=== PATIENT | female | born 1985 | race Caucasian/White ===

== ENCOUNTER 2016-06-10 10:15 | Emergency (ER) | payer OTHER ==
--- NOTE | 2016-06-10 10:32 | ER Document Report ---
ED Medical Screen (RME) - General Chief Complaint: Cough Stated Complaint: COUGH Time seen by provider: 10:30 Mode of Arrival: Ambulatory Information source: Patient Notes: 30 female presents to ed for cough off an on for 3 months. this time around she has headache chest pain throat pain with foul breath with yellow green expectorate. TRAVEL OUTSIDE OF THE [place] IN LAST 30 DAYS: No - HPI Onset: Other - month Onset/Duration: Gradual, Worse Quality of pain: Achy Severity: Moderate Pain Level: 3 Associated Symptoms: Body/muscle aches, Chest pain, Chills, Cough (productive), Diarrhea, Earache, Fever, Headache Exacerbated by: Denies Relieved by: Denies Similar symptoms previously: No Recently seen / treated by doctor: No - Related Data Smoking: Non-smoker Frequency of alcohol use: None Drug Abuse: None Past Medical History Musculoskeltal Medical History: Reports Hx Muscle Spasm, Reports Hx Musculoskeletal Deformity, Reports Hx Musculoskeletal Trauma Traumatic Medical History: Reports: Hx Fractures Past Surgical History: Reports: Hx Adenoidectomy, Hx Nose Surgery, Hx Oral Surgery, Hx Orthopedic Surgery - elbow surger, Hx Tonsillectomy - Immunizations Immunizations up to date: Yes Hx Diphtheria, Pertussis, Tetanus Vaccination: Yes
--- NOTE | 2016-06-10 11:10 | ER Document Report ---
ED General - General Mode of Arrival: Ambulatory Information source: Patient TRAVEL OUTSIDE OF THE [place] IN LAST 30 DAYS: No - HPI Patient complains to provider of: cough Onset: Other - 3 months ago Onset/Duration: Intermittent, Persistent Associated symptoms: Nonproductive cough, Earache, Headache, Other - Neck stiffness <JULIETA MCLEAN - Last Filed: 06/10/16 11:14> <KATHY JAIN - Last Filed: 06/10/16 13:25> - General Chief Complaint: Cough Stated Complaint: COUGH Notes: Patient is a 30-year-old female presenting to the emergency department concerned of intermittent cough onset approximately 3 months ago. Patient states that she decided to come here today to rule out pneumonia. Patient states that about 2 weeks ago her phlegm began to smell and taste like Clorox. Patient also complains of headaches, stiff neck, and ear pain. (JULIETA MCLEAN) - Related Data Allergies/Adverse Reactions: acetaminophen [From Vicodin] Allergy (Verified 06/10/16 10:30) amoxicillin [From Amoxil] Allergy (Verified 06/10/16 10:30) aspirin Allergy (Verified 06/10/16 10:30) codeine Allergy (Verified 06/10/16 10:30) hydrocodone [From Vicodin] Allergy (Verified 06/10/16 10:30) oxycodone [From Percocet] Allergy (Verified 06/10/16 10:30) Penicillins Allergy (Verified 06/10/16 10:30) Past Medical History - General Information source: Patient - Social History Smoking Status: Never Smoker Chew tobacco use (# tins/day): No Frequency of alcohol use: None Drug Abuse: None Lives with: Spouse/Significant other Family History: Reviewed & Not Pertinent, Arthritis, CAD, CVA, DM, Hyperlipidemia, Hypertension, Malignancy, Thyroid Disfunction Patient has suicidal ideation: No Patient has homicidal ideation: No Musculoskeltal Medical History: Reports Hx Muscle Spasm, Reports Hx Musculoskeletal Deformity, Reports Hx Musculoskeletal Trauma Traumatic Medical History: Reports: Hx Fractures Past Surgical History: Reports: Hx Adenoidectomy, Hx Nose Surgery, Hx Oral Surgery, Hx Orthopedic Surgery - elbow surgery, Hx Tonsillectomy - Immunizations Immunizations up to date: Yes Hx Diphtheria, Pertussis, Tetanus Vaccination: Yes <JULIETA MCLEAN - Last Filed: 06/10/16 11:14> Review of Systems - Review of Systems Constitutional: No symptoms reported EENT: See HPI, Ear pain, Nose congestion Cardiovascular: No symptoms reported Respiratory: See HPI, Cough Gastrointestinal: No symptoms reported Genitourinary: No symptoms reported Female Genitourinary: No symptoms reported Musculoskeletal: See HPI, Neck pain - Stiffness Skin: No symptoms reported Hematologic/Lymphatic: No symptoms reported Neurological/Psychological: See HPI, Headaches -: Yes All other systems reviewed and negative <JULIETA MCLEAN - Last Filed: 06/10/16 11:14> Physical Exam - Vital signs Interpretation: Hypertensive - General General appearance: Appears well, Alert - HEENT Head: Normocephalic, Atraumatic Eyes: Normal Pupils: PERRL Tympanic membrane: Retracted - Left TM retracted. Erythema bilaterally. Mucous membranes: Normal Pharynx: Normal - Respiratory Respiratory status: No respiratory distress Chest status: Nontender Breath sounds: Other - Left side coarse breath sounds on inspiration. No wheeze or rhonchi with cough. Chest palpation: Normal - Cardiovascular Rhythm: Regular Heart sounds: Normal auscultation Murmur: No - Abdominal Inspection: Obese Distension: No distension Bowel sounds: Normal Tenderness: Nontender Organomegaly: No organomegaly - Back Back: Normal, Nontender - Extremities General upper extremity: Normal inspection, Nontender, Normal color, Normal ROM , Normal temperature General lower extremity: Normal inspection, Nontender, Normal color, Normal ROM , Normal temperature - Neurological Neuro grossly intact: Yes Cognition: Normal Shay Coma Scale Eye Opening: Spontaneous Shay Coma Scale Verbal: Oriented Shay Coma Scale Motor: Obeys Commands Shay Coma Scale Total: 15 Speech: Normal - Psychological Associated symptoms: Normal affect, Normal mood - Skin Skin Temperature: Warm Skin Moisture: Dry Skin Color: Normal <JULIETA MCLEAN - Last Filed: 06/10/16 11:14> Course - Diagnostic Test Radiology reviewed: Image reviewed, Reports reviewed - Chest x-ray is unremarkable. <KATHY JAIN - Last Filed: 06/10/16 13:25> - Vital Signs Vital signs: Temp Pulse Resp BP Pulse Ox 98.0 F 80 16 132/80 H 99 06/10/16 11:40 06/10/16 11:40 06/10/16 11:40 06/10/16 11:40 06/10/16 11:40 (JULIETA MCLEAN) (KATHY JAIN) Discharge <JULIETA MCLEAN - Last Filed: 06/10/16 11:14> <KATHY JAIN - Last Filed: 06/10/16 13:25> - Discharge Clinical Impression: Bronchitis Left otitis media Qualifiers: Otitis media type: unspecified Chronicity: unspecified Qualified Code(s): H66.92 - Otitis media, unspecified, left ear Eustachian tube dysfunction Qualifiers: Laterality: left Qualified Code(s): H69.82 - Other specified disorders of Eustachian tube, left ear Condition: Stable Disposition: HOME, SELF-CARE Additional Instructions: Bronchitis: You have bronchitis. This disease is an infection or inflammation of the air passageways in your lungs. Symptoms usually include cough, low grade fever , shortness of breath, and wheezing. The cough usually persists for a couple of weeks. Most cases of bronchitis get better without antibiotics. We prescribe antibiotics when we believe bacteria are damaging your airways, or if there's high risk the bronchitis will worsen into pneumonia. Increase your fluid intake. A cool mist humidifier may make your lungs more comfortable. An expectorant (cough medicine that loosens phlegm) can help. If you smoke, STOP!!! Recovery from bronchitis can be somewhat slow, but you should see improvement within a day or two. Repeated episodes of bronchitis may result in lung damage -- for example, chronic bronchitis, recurrent pneumonias, or emphysema. Call the doctor if you develop increasing fever, shortness of breath, chest pain, bloody sputum, or otherwise worsen. If you have not improved at all after several days, contact the physician. TAKE THE MEDICATIONS PRESCRIBED. DRINK PLENTY OF FLUIDS. REST. TRY SUDAFED TO HELP DECOMPRESS YOUR LEFT MIDDLE EAR. FOLLOW UP WITH A LOCAL MEDICAL DOCTOR IF NOT IMPROVING. Prescriptions: Azithromycin [Zithromax 250 mg Tablet] 250 mg PO ASDIR PRN #6 tablet PRN Reason: Prednisone [Deltasone 10 mg Tablet] 10 mg PO ASDIR PRN #21 tablet PRN Reason: Scribe Attestation: 06/10/16 11:14 I personally performed the services described in the documentation, reviewed and edited the documentation which was dictated to the scribe in my presence, and it accurately records my words and actions. (KATHY JAIN) Scribe Documentation - Scribe Written by Michelle:: Julieta Mclean 06/10/2016 11:15 acting as scribe for :: Ria <JULIETA MCLEAN - Last Filed: 06/10/16 11:14>
[2016-06-10 11:55] VITALS: BP 132/80
== END 2016-06-10 11:50 | disposition home or self-care (01) ==
LOC: ER 10:15
DX: J40 Bronchitis, not specified as acute or chronic (principal); H66.92 Otitis media, unspecified, left ear; H69.92 Unspecified Eustachian tube disorder, left ear; R05 Cough; R51 Headache; M43.6 Torticollis; H92.09 Otalgia, unspecified ear; R09.81 Nasal congestion; Z88.0 Allergy status to penicillin; Z88.6 Allergy status to analgesic agent; Z88.5 Allergy status to narcotic agent
CPT/HCPCS: 71020; 99283

== ENCOUNTER 2017-04-26 22:46 | Emergency (ER) | payer OTHER ==
[2017-04-26] MEDS ORDERED: LIDOCAINE 2% VISCOUS SOLN 20 ML UDCUP PO ONE (23:11)
[2017-04-26] MEDS ORDERED: MAG HYDROX/AL HYDROX/SIMETH SUSP 30 ML UDCUP PO ONE (23:11)
[2017-04-26] MEDS ORDERED: METOCLOPRAMIDE HCL ORAL SOLN 10 MG/10 ML UDCUP PO ONE (23:11)
[2017-04-26] MEDS ORDERED: FAMOTIDINE 20 MG TABLET PO ONE (23:28)
--- NOTE | 2017-04-26 23:33 | ER Document Report ---
ED General - General Chief Complaint: Chest Pain Stated Complaint: STOMACH PAIN Time Seen by Provider: 04/26/17 23:04 Notes: Patient is a 31-year-old female without past medical history who presents after having an endoscopy performed yesterday now with having chest and upper abdominal pain. Pain is described as a constant, cramping, pressure-like sensation in her chest and upper abdomen. She states it is worsened by trying to eat or drink. She has tried Gas-X without any relief. She states this feels like a more severe version of her baseline gastroesophageal reflux. She denies any vomiting, syncope, pleuritic pain, history of DVT or pulmonary embolus, or shortness of breath. TRAVEL OUTSIDE OF THE [place] IN LAST 30 DAYS: No - Related Data Allergies/Adverse Reactions: acetaminophen [From Vicodin] Allergy (Verified 04/26/17 22:47) amoxicillin [From Amoxil] Allergy (Verified 04/26/17 22:47) aspirin Allergy (Verified 04/26/17 22:47) codeine Allergy (Verified 04/26/17 22:47) hydrocodone [From Vicodin] Allergy (Verified 04/26/17 22:47) oxycodone [From Percocet] Allergy (Verified 04/26/17 22:47) Penicillins Allergy (Verified 04/26/17 22:47) Past Medical History - General Information source: Patient - Social History Smoking Status: Never Smoker Frequency of alcohol use: None Drug Abuse: None Lives with: Spouse/Significant other Family History: Arthritis, CAD, CVA, DM, Hyperlipidemia, Hypertension, Malignancy, Thyroid Disfunction Musculoskeltal Medical History: Reports Hx Muscle Spasm, Reports Hx Musculoskeletal Deformity, Reports Hx Musculoskeletal Trauma Traumatic Medical History: Reports: Hx Fractures Past Surgical History: Reports: Hx Adenoidectomy, Hx Nose Surgery, Hx Oral Surgery, Hx Orthopedic Surgery - elbow surger, Hx Tonsillectomy - Immunizations Immunizations up to date: Yes Hx Diphtheria, Pertussis, Tetanus Vaccination: Yes Review of Systems - Review of Systems Notes: Constitutional: Negative for fever. HENT: Negative for sore throat. Eyes: Negative for visual changes. Cardiovascular: Positive for chest pain. Respiratory: Negative for shortness of breath. Gastrointestinal: Positive for upper abdominal pain Genitourinary: Negative for dysuria. Musculoskeletal: Negative for back pain. Skin: Negative for rash. Neurological: Negative for headaches, weakness or numbness. 10 point ROS negative except as marked above and in HPI. Physical Exam - Vital signs Vitals: Temp Pulse Resp BP Pulse Ox 98.4 F 74 20 147/78 H 98 04/26/17 22:53 04/26/17 22:53 04/26/17 22:53 04/26/17 22:53 04/26/17 22:53 Notes: PHYSICAL EXAMINATION: GENERAL: Well-appearing, well-nourished and in no acute distress. HEAD: Atraumatic, normocephalic. EYES: Pupils equal round and reactive to light, extraocular movements intact, sclera anicteric, conjunctiva are normal. ENT: nares patent, oropharynx clear without exudates. Moist mucous membranes. NECK: Normal range of motion, supple without lymphadenopathy LUNGS: Breath sounds clear to auscultation bilaterally and equal. No wheezes rales or rhonchi. HEART: Regular rate and rhythm without murmurs ABDOMEN: Soft, nontender, normoactive bowel sounds. No guarding, no rebound. No masses appreciated. EXTREMITIES: Normal range of motion, no pitting or edema. No cyanosis. NEUROLOGICAL: No focal neurological deficits. Moves all extremities spontaneously and on command. PSYCH: Normal mood, normal affect. SKIN: Warm, Dry, normal turgor, no rashes or lesions noted. Course - Re-evaluation Re-evalutation: 04/26/17 23:35 Patient presents with epigastric abdominal pain with associated reflux symptoms most consistent with likely gastritis or esophageal irritation in the setting of a recent endoscopy. Patient has no focal abdominal tenderness on examination. Clinical history and exam are not consistent with acute cholecystitis. Lipase is normal. No LFT changes. Chest x-ray does not demonstrate any evidence of an esophageal perforation patient is overall well appearing. based on history and exam, I do not suspect ACS, pulmonary embolus, SBO, mesenteric ischemia, acute pancreatitis, biliary pathology, or an abdominal aortic dissection. Patient has had improvement of symptoms here with a GI cocktail. At this time will discharge with return precautions and follow- up recommendations. Verbal discharge instructions given a the bedside and opportunity for questions given. Medication warnings reviewed. Patient is in agreement with this plan and has verbalized understanding of return precautions and the need for primary care follow-up in the next 24-72 hours. - Vital Signs Vital signs: Temp Pulse Resp BP Pulse Ox 98.4 F 74 20 147/78 H 98 04/26/17 22:53 04/26/17 22:53 04/26/17 22:53 04/26/17 22:53 04/26/17 22:53 - Laboratory Result Diagrams: 04/26/17 23:30 04/26/17 23:30 - Diagnostic Test Radiology reviewed: Image reviewed, Reports reviewed Radiology results interpreted by me: 04/27/17 00:43 Chest x-ray: No free air, infiltrate or pneumothorax - EKG Interpretation by Me Additional EKG results interpreted by me: 04/27/17 00:43 Sinus rhythm. Rate 74. No ST elevations or depressions. QTC is 440. Discharge - Discharge Clinical Impression: Chest discomfort, Esophageal spasm Condition: Good Disposition: HOME, SELF-CARE Additional Instructions: Your symptoms appear to be most consistent with stomach or upper intestinal irritation. Please begin taking famotidine 40 mg in the morning and 40 mg at night. This medicine can be purchased directly [id number]. You may also take medicine such as Pepto-Bismol or Tums to assist with your pain. Please return to emergency department immediately if you have worsening of your pain, shortness of breath, vomiting, become unable to exert yourself due to pain or difficulty breathing, you pass out, or have any pain that radiates into your arms, jaw, or back. Please also return if you have any additional symptoms that are concerning to you.
[2017-04-26 23:41] LABS: ABSOLUTE BASOPHILS # (AUTO) 0.1 10^3/uL (0.0-0.2); ABSOLUTE EOSINOPHILS # (AUTO) 0.2 10^3/uL (0.0-0.6); ABSOLUTE LYMPHOCYTES (AUTO) 2.9 10^3/uL (0.5-4.7); ABSOLUTE MONOCYTES (AUTO) 0.6 10^3/uL (0.1-1.4); ABSOLUTE NEUT (AUTO) 6.2 10^3/uL (1.7-8.2); BASOPHILS % (AUTO) 0.8 % (0-2); EOSINOPHILS % (AUTO) 1.8 % (0-6); HEMATOCRIT 36.4 % (36.0-47.0); HEMOGLOBIN 12.6 g/dL (12.0-15.5); HGB HCT DIFFERENCE 1.4; LYMPHOCYTES % (AUTO) 29.2 % (13-45); MEAN CORPUSCULAR HEMOGLOBIN 30.6 pg (27.0-33.4); MEAN CORPUSCULAR HGB CONC 34.7 g/dL (32.0-36.0); MEAN CORPUSCULAR VOLUME 88 fl (80-97); MONOCYTES % (AUTO) 6.3 % (3-13); RED BLOOD COUNT 4.12 10^6/uL (3.72-5.28); RED CELL DISTRIBUTION WIDTH 12.8 % (11.5-14.0); SEGMENTED NEUTROPHILS % (AUTO) 61.9 % (42-78)
[2017-04-26 23:54] LABS: ALANINE AMINOTRANSFERASE 38 U/L (9-52); ALBUMIN 4.1 g/dL (3.5-5.0); ALKALINE PHOSPHATASE 78 U/L (38-126); ANION GAP 13 (5-19); ASPARTATE AMINO TRANSFERASE 18 U/L (14-36); BILIRUBIN,DIRECT 0.3 mg/dL (0.0-0.4); BILIRUBIN,TOTAL 0.3 mg/dL (0.2-1.3); BLOOD UREA NITROGEN 17 mg/dL (7-20); CALCIUM 9.7 mg/dL (8.4-10.2); CARBON DIOXIDE 25 mmol/L (22-30); CHLORIDE 104 mmol/L (98-107); CREATININE RESULT 0.91 mg/dL (0.52-1.25); GLUCOSE 89 mg/dL (75-110); LIPASE 180.6 U/L (23-300); POTASSIUM 3.9 mmol/L (3.6-5.0); SODIUM 141.9 mmol/L (137-145); TOTAL PROTEIN 6.9 g/dL (6.3-8.2)
--- NOTE | 2017-04-27 00:16 | RADIOLOGY REPORT (SQ) ---
EXAM DESCRIPTION: CHEST SINGLE VIEW COMPLETED DATE/TIME: 04/26/2017 11:36 pm REASON FOR STUDY: chest pain COMPARISON: 06/10/2016. EXAM PARAMETERS: NUMBER OF VIEWS: One view. TECHNIQUE: Single frontal radiographic view of the chest acquired. RADIATION DOSE: NA LIMITATIONS: None. FINDINGS: LUNGS AND PLEURA: No opacities, masses or pneumothorax. No pleural effusion. MEDIASTINUM AND HILAR STRUCTURES: No masses. Contour normal. HEART AND VASCULAR STRUCTURES: Heart normal in size. Normal vasculature. BONES: No acute findings. HARDWARE: None in the chest. OTHER: No other significant finding. IMPRESSION: NO ACUTE RADIOGRAPHIC FINDING IN THE CHEST. TECHNICAL DOCUMENTATION: JOB ID: [id number] [employer]- All Rights Reserved
[2017-04-27 00:59] VITALS: BP 139/82
--- NOTE | 2017-04-27 15:44 | EKG REPORT ---
SEVERITY:- NORMAL ECG - SINUS ARRHYTHMIA, RATE 56-86 : Confirmed by: Lakeshia Davis MD 27-Apr-2017 15:43:46
== END 2017-04-27 00:59 | disposition home or self-care (01) ==
LOC: ER 22:46
DX: K22.4 Dyskinesia of esophagus (principal); R07.9 Chest pain, unspecified; Z88.6 Allergy status to analgesic agent; Z88.0 Allergy status to penicillin
CPT/HCPCS: 93005; 99285; 36415; 83690; 85025; 80053; 71010; 93010; J3490

== ENCOUNTER 2018-07-22 22:48 | Observation (INO) | payer OTHER ==
[2018-07-22] MEDS ORDERED: FAMOTIDINE 20 MG TABLET PO ONE (23:38)
[2018-07-22] MEDS ORDERED: MAG HYDROX/AL HYDROX/SIMETH SUSP 30 ML UDCUP PO ONE (23:38)
[2018-07-22] MEDS ORDERED: METOCLOPRAMIDE HCL ORAL SOLN 10 MG/10 ML UDCUP PO ONE (23:38)
[2018-07-22] MEDS ORDERED: SUCRALFATE 1 GM TABLET PO ONE (23:38)
[2018-07-22] MEDS ORDERED: LIDOCAINE 2% VISCOUS SOLN 20 ML UDCUP PO ONE (23:38)
[2018-07-23 00:02] LABS: ABSOLUTE BASOPHILS # (AUTO) 0.1 10^3/uL (0.0-0.2); ABSOLUTE EOSINOPHILS # (AUTO) 0.1 10^3/uL (0.0-0.6); ABSOLUTE LYMPHOCYTES (AUTO) 2.8 10^3/uL (0.5-4.7); ABSOLUTE MONOCYTES (AUTO) 0.8 10^3/uL (0.1-1.4); ABSOLUTE NEUT (AUTO) 7.7 10^3/uL (1.7-8.2); BASOPHILS % (AUTO) 0.7 % (0-2); EOSINOPHILS % (AUTO) 1.3 % (0-6); HEMATOCRIT 37.7 % (36.0-47.0); LYMPHOCYTES % (AUTO) 24.5 % (13-45); MEAN CORPUSCULAR HEMOGLOBIN 30.5 pg (27.0-33.4); MEAN CORPUSCULAR HGB CONC 34.4 g/dL (32.0-36.0); MEAN CORPUSCULAR VOLUME 89 fl (80-97); MONOCYTES % (AUTO) 6.6 % (3-13); PLATELET COUNT 231 10^3/uL (150-450); RED BLOOD COUNT 4.26 10^6/uL (3.72-5.28); RED CELL DISTRIBUTION WIDTH 12.9 % (11.5-14.0); SEGMENTED NEUTROPHILS % (AUTO) 66.9 % (42-78); TOTAL CELLS COUNTED % (AUTO) 100 %; WHITE BLOOD COUNT 11.6 10^3/uL (4.0-10.5)
[2018-07-23 00:24] LABS: ALANINE AMINOTRANSFERASE 28 U/L (9-52); ALBUMIN 4.3 g/dL (3.5-5.0); ALKALINE PHOSPHATASE 95 U/L (38-126); ANION GAP 10 (5-19); ASPARTATE AMINO TRANSFERASE 25 U/L (14-36); BILIRUBIN,DIRECT 0.3 mg/dL (0.0-0.4); BILIRUBIN,TOTAL 0.3 mg/dL (0.2-1.3); BLOOD UREA NITROGEN 13 mg/dL (7-20); CALCIUM 9.4 mg/dL (8.4-10.2); CARBON DIOXIDE 24 mmol/L (22-30); CHLORIDE 104 mmol/L (98-107); GLUCOSE 97 mg/dL (75-110); LIPASE 132.1 U/L (23-300); POTASSIUM 4.3 mmol/L (3.6-5.0); SODIUM 138.4 mmol/L (137-145); TOTAL PROTEIN 7.2 g/dL (6.3-8.2)
--- NOTE | 2018-07-23 02:00 | ER Document Report ---
ED General - General Chief Complaint: Abdominal Pain Stated Complaint: ABDOMINAL PAIN Time Seen by Provider: 07/22/18 23:36 Primary Care Provider: REKHA GIFFORD PA [NO LOCAL MD] - Follow up as needed Notes: Patient is a 33-year-old female with past medical history of reflux esophagitis, gastritis, who presents with 12 hours of bloating, cramping to her upper abdomen with reflux into her chest. Patient reports that the symptoms started yesterday morning, had resolved after she took an extra dose of her omeprazole but recurred after she ate dinner again tonight. States this feels exactly the same as when she was here in 2017. Symptoms are described as cramping, aching and constant at this time. She denies chest pain or shortness of breath. Has been nauseated but not vomiting. Has not seen her primary care physician regarding today's concerns. Has had an endoscopy in the past for similar issues. TRAVEL OUTSIDE OF THE [place] IN LAST 30 DAYS: No - Related Data Allergies/Adverse Reactions: amoxicillin [From Amoxil] Allergy (Verified 07/22/18 23:58) aspirin Allergy (Verified 07/22/18 23:58) codeine Allergy (Verified 07/22/18 23:58) hydrocodone [From Vicodin] Allergy (Verified 07/22/18 23:58) ibuprofen Allergy (Verified 07/22/18 23:58) oxycodone [From Percocet] Allergy (Verified 07/22/18 23:58) Penicillins Allergy (Verified 07/22/18 23:58) Past Medical History - General Information source: Patient - Social History Smoking Status: Never Smoker Frequency of alcohol use: None Drug Abuse: None Lives with: Spouse/Significant other Family History: Arthritis, CAD, CVA, DM, Hyperlipidemia, Hypertension, Malignan cy, Thyroid Disfunction Patient has suicidal ideation: No Patient has homicidal ideation: No Renal/ Medical History: Denies: Hx Peritoneal Dialysis GI Medical History: Reports: Hx Gastroesophageal Reflux Disease Musculoskeletal Medical History: Reports Hx Muscle Spasm, Reports Hx Musculoskeletal Deformity, Reports Hx Musculoskeletal Trauma Traumatic Medical History: Reports: Hx Fractures Past Surgical History: Reports: Hx Adenoidectomy, Hx Nose Surgery - septoplasty, Hx Oral Surgery, Hx Orthopedic Surgery - elbow surger, Hx Tonsillectomy - Immunizations Immunizations up to date: Yes Hx Diphtheria, Pertussis, Tetanus Vaccination: Yes Review of Systems - Review of Systems Notes: Constitutional: Negative for fever. HENT: Negative for sore throat. Eyes: Negative for visual changes. Cardiovascular: Negative for chest pain. Respiratory: Negative for shortness of breath. Gastrointestinal: Negative for positive for abdominal pain and nausea Genitourinary: Negative for dysuria. Musculoskeletal: Negative for back pain. Skin: Negative for rash. Neurological: Negative for headaches, weakness or numbness. 10 point ROS negative except as marked above and in HPI. Physical Exam - Vital signs Vitals: Temp Pulse Resp BP Pulse Ox 98.9 F 69 18 151/89 H 100 07/22/18 23:32 07/22/18 23:32 07/22/18 23:32 07/22/18 23:32 07/22/18 23:32 Interpretation: Hypertensive Notes: PHYSICAL EXAMINATION: GENERAL: Well-appearing, well-nourished and in no acute distress. HEAD: Atraumatic, normocephalic. EYES: Pupils equal round and reactive to light, extraocular movements intact, sclera anicteric, conjunctiva are normal. ENT: nares patent, oropharynx clear without exudates. Moist mucous membranes. NECK: Normal range of motion, supple without lymphadenopathy LUNGS: Breath sounds clear to auscultation bilaterally and equal. No wheezes rales or rhonchi. HEART: Regular rate and rhythm without murmurs ABDOMEN: Soft, mild epigastric abdominal tenderness on palpation but no other localized areas of tenderness, normoactive bowel sounds. No guarding, no rebound. No masses appreciated. EXTREMITIES: Normal range of motion, no pitting or edema. No cyanosis. NEUROLOGICAL: No focal neurological deficits. Moves all extremities spontaneously and on command. PSYCH: Normal mood, normal affect. SKIN: Warm, Dry, normal turgor, no rashes or lesions noted. Course - Re-evaluation Re-evalutation: 07/23/18 01:59 Patient presents with epigastric and right upper quadrant abdominal pain with associated nausea and a fatty meal. Right upper quadrant ultrasound does show gallstones as well as a thickened gallbladder wall at 7 mm. On reexamination of the patient she continues to have focal pain to the right upper quadrant and epigastrium. Labs notable for mild leukocytosis at 11.7. This picture is overall consistent with acute cholecystitis. I discussed with surgeon on-call Dr. Quintero who will evaluate the patient for surgical management. - Vital Signs Vital signs: Temp Pulse Resp BP Pulse Ox 97.9 F 73 16 132/74 H 100 07/23/18 02:21 07/23/18 02:21 07/23/18 02:21 07/23/18 02:21 07/23/18 02:21 - Laboratory Result Diagrams: 07/22/18 23:50 07/22/18 23:50 Laboratory results interpreted by me: 07/22/18 23:50 WBC 11.6 H - Diagnostic Test Radiology reviewed: Reports reviewed Discharge - Discharge Clinical Impression: Nausea, Upper abdominal pain, Acute cholecystitis Condition: Fair Disposition: ADMITTED OBSERVATION Admitting Provider: Surgicalist Unit Admitted: Surgical Floor Referrals: REKHA GIFFORD PA [NO LOCAL MD] - Follow up as needed
--- NOTE | 2018-07-23 02:27 | RADIOLOGY REPORT (SQ) ---
CLINICAL HISTORY: upper abd pain COMPARISON: None. TECHNIQUE: US ABDOMEN LIMITED on 07/22/2018 11:38 PM [facility] FINDINGS: The abdominal aorta is not aneurysmal. Portal vein is patent. Liver is fatty in echotexture. Gallbladder contains gallstones in mildly thickened wall with almost 7 mm. There is no pericecal cholecystic fluid or sonographic Cramer sign. Common bile duct measures 3.5 mm. Right kidney measures 9.2 cm without hydronephrosis. IMPRESSION: Cholelithiasis with mildly thickened gallbladder wall.
[2018-07-23] MEDS ORDERED: DEXTROSE 40% GEL 15 GM TUBE PO PRN ×2 (03:51)
[2018-07-23] MEDS ORDERED: PROMETHAZINE HCL INJ 25 MG/1 ML VIAL IV PRN ×3 (03:51→12:16)
[2018-07-23] MEDS ORDERED: NORMAL SALINE 1000 ML 1,000 ML IV PRN ×2 (03:51→13:37)
[2018-07-23] MEDS ORDERED: CIPROFLOXACIN 400 MG/D5W RTU 400 MG/200 ML RTUPB IV PRN (03:51)
[2018-07-23] MEDS ORDERED: DEXTROSE 50%-WATER 25 GM/50 ML DISP.SYRIN IV PRN ×2 (03:51)
[2018-07-23] MEDS ORDERED: METRONIDAZOLE 500 MG/NS RTU 500 MG/100 ML RTUPB IV PRN (03:51)
[2018-07-23] MEDS ORDERED: GLUCAGON,HUMAN RECOMB 1 MG INJ SUBCUT PRN (03:51)
--- NOTE | 2018-07-23 03:51 | PDOC H&P ---
History of Present Illness Admission Date/PCP: 07/23/18 03:03 MADHU WILSON PA-C Patient complains of: RUQ pain History of Present Illness: CHERYLE OLIVERA is a 33 year old female with past medical history of reflux esophagitis, gastritis, who presents with 12 hours of bloating, cramping to her upper abdomen with reflux into her chest. Patient reports that the symptoms started yesterday morning, had resolved after she took an extra dose of her omeprazole but recurred after she ate dinner again tonight. An US of the gallbladder has lester done tonight and it shows cholelithiasis with mildly thickened gallbladder wall. Past Medical History GI Medical History: Reports: Gastroesophageal Reflux Disease Past Surgical History Past Surgical History: Reports: Adenoidectomy, Orthopedic Surgery - elbow surger, Tonsillectomy Social History Lives with: Spouse/Significant other Smoking Status: Never Smoker Family History Family History: Arthritis, CAD, CVA, DM, Hyperlipidemia, Hypertension, Malignancy, Thyroid Disfunction Parental Family History Reviewed: No Children Family History Reviewed: No Sibling(s) Family History Reviewed.: No Medication/Allergy Home Medications: Omeprazole 40 mg PO BID 07/23/18 Propranolol HCl [Inderal 10 mg Tablet] 10 mg PO QHS 07/23/18 Allergies/Adverse Reactions: amoxicillin [From Amoxil] Allergy (Verified 07/22/18 23:58) aspirin Allergy (Verified 07/22/18 23:58) codeine Allergy (Verified 07/22/18 23:58) hydrocodone [From Vicodin] Allergy (Verified 07/22/18 23:58) ibuprofen Allergy (Verified 07/22/18 23:58) oxycodone [From Percocet] Allergy (Verified 07/22/18 23:58) Penicillins Allergy (Verified 07/22/18 23:58) Physical Exam Vital Signs: Temp Pulse Resp BP Pulse Ox 97.9 F 73 16 132/74 H 100 07/23/18 02:21 07/23/18 02:21 07/23/18 02:21 07/23/18 02:21 07/23/18 02:21 Intake & Output 07/21/18 07/22/18 07/23/18 06:59 06:59 06:59 Weight 124.6 kg General appearance: PRESENT: no acute distress Head exam: PRESENT: atraumatic Eye exam: PRESENT: EOMI Mouth exam: PRESENT: neck supple Neck exam: PRESENT: full ROM Respiratory exam: PRESENT: clear to auscultation yamil Cardiovascular exam: PRESENT: RRR GI/Abdominal exam: PRESENT: soft, tenderness - Right upper quadrant Rectal exam: PRESENT: deferred Extremities exam: PRESENT: full ROM Musculoskeletal exam: PRESENT: full ROM Neurological exam: PRESENT: oriented to person Psychiatric exam: PRESENT: appropriate affect Skin exam: PRESENT: warm Results Laboratory Results: 07/22/18 23:50 07/22/18 23:50 07/22/18 07/22/18 07/22/18 23:50 23:50 23:50 WBC 11.6 H RBC 4.26 Hgb 13.0 Hct 37.7 MCV 89 MCH 30.5 MCHC 34.4 RDW 12.9 Plt Count 231 Seg Neutrophils % 66.9 Lymphocytes % 24.5 Monocytes % 6.6 Eosinophils % 1.3 Basophils % 0.7 Absolute Neutrophils 7.7 Absolute Lymphocytes 2.8 Absolute Monocytes 0.8 Absolute Eosinophils 0.1 Absolute Basophils 0.1 Sodium 138.4 Potassium 4.3 Chloride 104 Carbon Dioxide 24 Anion Gap 10 BUN 13 Creatinine 0.74 Est GFR ( Amer) > 60 Est GFR (Non-Af Amer) > 60 Glucose 97 Calcium 9.4 Total Bilirubin 0.3 AST 25 ALT 28 Alkaline Phosphatase 95 Total Protein 7.2 Albumin 4.3 Lipase 132.1 Serum HCG, Qual NEGATIVE Impressions: Abdomen Ultrasound 07/22/18 23:38 IMPRESSION: Cholelithiasis with mildly thickened gallbladder wall. Assessment & Plan - Diagnosis (1) Cholelithiasis Qualifiers: Cholelithiasis location: gallbladder (2) Acute cholecystitis Is this a current diagnosis for this admission?: Yes - Plan Summary Plan Summary: A/ Symptomatic cholelithiasis with cholecystitis CBD 3.5 mm Mild leukocytosis (11.6k) Normal liver profile P/ Admit NPO IVF Laparoscopic cholecystectomy, possible open, possible cholangiogram Procedure, risks, benefits, complications, alternatives, including bleeding from liver and or injury of the common bile duct which might require transfer to a tertiary center for open repair have been clearly explained to the patient, she understands all the above, her questions were answered, and she decides to proceed
[2018-07-23] MEDS ORDERED: PROPRANOLOL HCL 10 MG TABLET PO ONE ×2 (04:30→05:45)
[2018-07-23] MEDS: MORPHINE SULFATE 10 MG/ML INJ IV PRN ×3 (06:00→23:24)
[2018-07-23] MEDS: FAMOTIDINE INJ/PF 20 MG/2 ML SDV IV SCH ×2 (06:31→17:18)
[2018-07-23] MEDS ORDERED: PROPRANOLOL HCL 10 MG TABLET ONE (06:32)
--- NOTE | 2018-07-23 07:33 | EKG REPORT ---
SEVERITY:- ABNORMAL ECG - SINUS RHYTHM INCOMPLETE RIGHT BUNDLE BRANCH BLOCK : Confirmed by: Kade Bermudez MD 23-Jul-2018 07:33:13
[2018-07-23] MEDS ORDERED: LIDOCAINE 2% INJ-PF (20 MG/ML) 2 ML AMPUL ONE (09:53)
[2018-07-23] MEDS ORDERED: ONDANSETRON HCL INJ/PF 4 MG/2 ML SDV ONE (09:53)
[2018-07-23] MEDS ORDERED: DEXAMETHASONE SOD PHOSPHATE INJ 4 MG/1 ML VIAL ONE (09:53)
[2018-07-23] MEDS ORDERED: SUCCINYLCHOLINE CHLORIDE INJ 200 MG/10 ML VIAL ONE (09:53)
[2018-07-23] MEDS ORDERED: NEOSTIGMINE METHYLSULFATE 10 MG/10 ML VIAL ONE (09:53)
[2018-07-23] MEDS ORDERED: ROCURONIUM BROMIDE INJ 50 MG/5 ML VIAL IV ONE (09:53)
[2018-07-23] MEDS ORDERED: GLYCOPYRROLATE 1 MG/5 ML SYRINGE ONE (09:53)
[2018-07-23] MEDS ORDERED: PROPOFOL INJ 200 MG/20 ML VIAL IV ONE (10:23)
[2018-07-23] MEDS ORDERED: MIDAZOLAM 2 MG/2 ML INJ ONE (10:23)
[2018-07-23] MEDS ORDERED: ACETAMINOPHEN 1,000 MG/100 ML RTUPB IV ONE (10:23)
[2018-07-23] MEDS ORDERED: FENTANYL CITRATE INJ/PF 100 MCG/2 ML AMPUL ONE (10:23)
[2018-07-23] MEDS ORDERED: HYDROMORPHONE HCL INJ/PF 2 MG/ML AMPULE ONE (10:23)
[2018-07-23] MEDS ORDERED: BUPIVACAINE HCL 0.5%-EPI 1:200000 INJ/PF 30 ML VIAL ONE (10:40)
[2018-07-23] MEDS ORDERED: FENTANYL CITRATE INJ/PF 100 MCG/2 ML AMPUL IV PRN ×3 (12:16)
[2018-07-23] MEDS ORDERED: MEPERIDINE HCL/PF INJ 25 MG/1 ML DISP.SYRIN IV PRN (12:16)
[2018-07-23] MEDS ORDERED: ONDANSETRON HCL INJ/PF 4 MG/2 ML SDV IV PRN (12:16)
[2018-07-23] MEDS ORDERED: DIPHENHYDRAMINE HCL 50 MG/ML VIAL IV PRN (12:16)
--- NOTE | 2018-07-23 13:25 | Operative Report ---
Nonrecallable Operative Report DATE OF SURGERY: 07/23/18 PREOPERATIVE DIAGNOSIS: cholelithiasis. cholecystitis POSTOPERATIVE DIAGNOSIS: same, chronic cholecystitis OPERATION: laparoscopic cholecystectomy SURGEON: ESTEBAN TAM ANESTHESIA: GA - plus 20 mL 05% marcaine TISSUE REMOVED OR ALTERED: gallbladder COMPLICATIONS: none ESTIMATED BLOOD LOSS: <20 mL INTRAOPERATIVE FINDINGS: chronic cholecystitis with cholelithiasis PROCEDURE: see dictation
[2018-07-23] MEDS: FENTANYL CITRATE INJ/PF 100 MCG/2 ML AMPUL ONE ×2 (13:26→13:31)
[2018-07-23] MEDS ORDERED: KETOROLAC TROMETHAMINE INJ/PF 30 MG/1 ML SDV IV PRN (13:30)
[2018-07-23] MEDS ORDERED: ACETAMINOPHEN 1,000 MG/100 ML RTUPB IV SCH (13:45)
[2018-07-23] MEDS ORDERED: FAMOTIDINE INJ/PF 20 MG/2 ML SDV IV SCH (13:45)
[2018-07-23] MEDS: METRONIDAZOLE 500 MG/NS RTU 500 MG/100 ML RTUPB IV SCH ×2 (17:18→23:25)
[2018-07-23] MEDS: ACETAMINOPHEN 1,000 MG/100 ML RTUPB IV SCH ×2 (18:51→23:05)
[2018-07-23] MEDS ORDERED: PROPRANOLOL HCL 10 MG TABLET PO SCH ×2 (22:00)
[2018-07-24 05:48] LABS: ABSOLUTE LYMPHOCYTES (AUTO) 1.8 10^3/uL (0.5-4.7); ABSOLUTE MONOCYTES (AUTO) 0.7 10^3/uL (0.1-1.4); ABSOLUTE NEUT (AUTO) 9.1 10^3/uL (1.7-8.2); BASOPHILS % (AUTO) 0.2 % (0-2); EOSINOPHILS % (AUTO) 0.1 % (0-6); HEMATOCRIT 34.6 % (36.0-47.0); HEMOGLOBIN 11.7 g/dL (12.0-15.5); LYMPHOCYTES % (AUTO) 15.5 % (13-45); MEAN CORPUSCULAR HEMOGLOBIN 30.3 pg (27.0-33.4); MEAN CORPUSCULAR HGB CONC 33.8 g/dL (32.0-36.0); MEAN CORPUSCULAR VOLUME 90 fl (80-97); MONOCYTES % (AUTO) 6.3 % (3-13); PLATELET COUNT 191 10^3/uL (150-450); RED BLOOD COUNT 3.86 10^6/uL (3.72-5.28); SEGMENTED NEUTROPHILS % (AUTO) 77.9 % (42-78); TOTAL CELLS COUNTED % (AUTO) 100 %; WHITE BLOOD COUNT 11.7 10^3/uL (4.0-10.5)
[2018-07-24] MEDS: ACETAMINOPHEN 1,000 MG/100 ML RTUPB IV SCH (05:48)
[2018-07-24 05:49] LABS: ALANINE AMINOTRANSFERASE 37 U/L (9-52); ALBUMIN 3.6 g/dL (3.5-5.0); ALKALINE PHOSPHATASE 74 U/L (38-126); ANION GAP 7 (5-19); ASPARTATE AMINO TRANSFERASE 39 U/L (14-36); BILIRUBIN,DIRECT 0.2 mg/dL (0.0-0.4); BILIRUBIN,TOTAL 0.4 mg/dL (0.2-1.3); BLOOD UREA NITROGEN 8 mg/dL (7-20); CARBON DIOXIDE 25 mmol/L (22-30); CHLORIDE 109 mmol/L (98-107); GLUCOSE 110 mg/dL (75-110); POTASSIUM 4.3 mmol/L (3.6-5.0); SODIUM 140.9 mmol/L (137-145)
[2018-07-24] MEDS: FAMOTIDINE INJ/PF 20 MG/2 ML SDV IV SCH (06:05)
[2018-07-24] MEDS: MORPHINE SULFATE 10 MG/ML INJ IV PRN (06:05)
[2018-07-24] MEDS: METRONIDAZOLE 500 MG/NS RTU 500 MG/100 ML RTUPB IV SCH (06:06)
--- NOTE | 2018-07-24 08:36 | PDOC PROGRESS REPORT ---
Subjective Progress Note for:: 07/24/18 Subjective:: comfortable Reason For Visit: SYMPTOMATIC CHOLELITHIASIS WITH CHOLECYSTITIS Physical Exam Vital Signs: Temp Pulse Resp BP Pulse Ox 97.6 F 89 16 136/75 H 99 07/23/18 23:03 07/23/18 23:03 07/23/18 23:03 07/23/18 23:03 07/23/18 23:03 Intake & Output 07/23/18 07/24/18 07/25/18 06:59 06:59 06:59 Intake Total 1900 200 Output Total 610 Balance 1290 200 Weight 124 kg 122 kg General appearance: PRESENT: no acute distress Respiratory exam: PRESENT: clear to auscultation yamil Cardiovascular exam: PRESENT: RRR GI/Abdominal exam: PRESENT: soft, other - incisions c/d/i Results Laboratory Results: 07/24/18 05:16 07/24/18 05:16 07/24/18 07/24/18 05:16 05:16 WBC 11.7 H RBC 3.86 Hgb 11.7 L Hct 34.6 L MCV 90 MCH 30.3 MCHC 33.8 RDW 13.0 Plt Count 191 Seg Neutrophils % 77.9 Lymphocytes % 15.5 Monocytes % 6.3 Eosinophils % 0.1 Basophils % 0.2 Absolute Neutrophils 9.1 H Absolute Lymphocytes 1.8 Absolute Monocytes 0.7 Absolute Eosinophils 0.0 Absolute Basophils 0.0 Sodium 140.9 Potassium 4.3 Chloride 109 H Carbon Dioxide 25 Anion Gap 7 BUN 8 Creatinine 0.74 Est GFR ( Amer) > 60 Est GFR (Non-Af Amer) > 60 Glucose 110 Calcium 9.0 Total Bilirubin 0.4 AST 39 H ALT 37 Alkaline Phosphatase 74 Total Protein 6.0 L Albumin 3.6 Impressions: Abdomen Ultrasound 07/22/18 23:38 IMPRESSION: Cholelithiasis with mildly thickened gallbladder wall. Assessment & Plan - Diagnosis (1) Cholelithiasis Qualifiers: Cholelithiasis location: gallbladder Is this a current diagnosis for this admission?: Yes (2) Acute cholecystitis Is this a current diagnosis for this admission?: Yes - Plan Summary Plan Summary: A/ POD #1 after lap ayleen VSS, AF blood work WNL physical exam unremarkabke patient tolerating PO well P/ Home today f/u with Surgery Clinic Lawanda Nallely, PA in 2 weeks regular diet activities as tolerated no wound care needed shower only x 2 weeks after surgery, then can bathe Tylenol/ice pack to wound areas as neededfor pain
[2018-07-24 09:14] VITALS: BP 144/80
--- NOTE | 2018-07-24 09:53 | DISCHARGE SUMMARY E ---
Discharge Summary NAME: CHERYLE OLIVERA : 1985 AGE: 33Y ADMITTED: 07/23/2018 DISCHARGED: 07/24/2018 FINAL DIAGNOSIS: 1. Chronic cholecystitis. 2. Cholelithiasis. PROCEDURE: July 23 the patient underwent laparoscopic cholecystectomy. COMPLICATIONS: None. HOSPITAL COURSE: A healthy, morbidly obese, 33-year-old female who presented to the Emergency Room on the morning of July 23, 2018 complaining of abdominal pain in the right upper quadrant. An ultrasound was done revealing a cholelithiasis and cholecystitis. Her blood work was within normal limits. The patient was taken to surgery on same day and underwent laparoscopic cholecystectomy, uneventful. The patient was then transferred to the floor. Her diet was advanced, during the overnight stay the patient's vital signs remained stable. She was able to tolerate p.o. well and pain tolerance improved. On the morning of discharge the patient was stable with no complaints. Abdomen was soft. A physical exam showed all wounds clean, dry, intact. Blood work within normal limits with normal liver profile. The patient was discharged home on July 24, 2018. She was given a followup appointment to the surgery clinic in 2 weeks with the physician cashier assistant Lawanda Ahmadi. She was instructed to resume her medications, Tylenol only for pain as well as ice packs to the painful wounds. Shower only for 2 weeks. Afterwards she can bathe. Activity as tolerated. Regular diet. DICTATING PHYSICIAN: ESTEBAN TAM M.D. [id number] PHY#: [id number] ID: [id number] JOB#: [id number] ACCT: [id number] cc:ESTEBAN MARTINEZ M.D. >
[2018-07-24] MEDS ORDERED: LEVOFLOXACIN 500 MG/D5W RTU 500 MG/100 ML RTUPB IV SCH (10:00)
--- NOTE | 2018-07-24 11:26 | OPERATIVE REPORT E ---
Operative Report NAME: CHERYLE OLIVERA : 1985 AGE: 33Y DATE OF SURGERY: 07/23/2018 ROOM: 208 PREOPERATIVE DIAGNOSIS: CHOLELITHIASIS. POSTOPERATIVE DIAGNOSIS: CHOLELITHIASIS, CHOLECYSTITIS. OPERATION: LAPAROSCOPIC CHOLECYSTECTOMY. SURGEON: ESTEBAN TAM M.D. PAGE MAKEUP SYSTEM OPERATOR: None. ESTIMATED BLOOD LOSS: Less than 20 mL. COMPLICATIONS: None. FLUIDS: 600 mL crystalloid. ANESTHESIA: General plus 20 mL of 0.5% Marcaine. DRAINS: None. INDICATION/FINDINGS: A 33-year-old morbidly obese female with a BMI of 50, who presents to the emergency room complaining of right upper quadrant pain. The patient has a history of right upper quadrant pain for several months. She presents to the emergency room with the above symptoms. An ultrasound of the right upper quadrant was performed, which indicated the presence of uncomplicated cholelithiasis with thickening of the gallbladder wall. Blood work was within normal limits except for a slightly elevated white blood cell count of 11.3. Liver profile was within normal limits. The patient was scheduled to undergo laparoscopic cholecystectomy, possibly open, with possible cholangiogram. Procedure, risks, benefits, and complications explained to the patient. She understands all the above, including the possibility of bleeding from the liver and/or injury to the common bile duct, which may require transfer to a tertiary center for repair. The patient understands all the above. Her questions were answered and she decided to proceed. PROCEDURE: The patient was taken to the operating room. The patient was placed in supine position. She underwent anesthesia with intubation. Abdomen prepped and draped in usual fashion. An incision was made just above the umbilicus. The skin of the abdominal wall was tented with towel clips and a 5 mm port with Optiview adapter and scope was inserted through the abdominal wall into the peritoneal cavity. Pneumoperitoneum was established. The patient was placed in reverse Trendelenburg position with the right side elevated. A 12 mm port was inserted through the epigastrium through a skin incision. Two additional 5 mm ports were placed in the right upper and right lower quadrant of the abdomen under direct visualization. The gallbladder was grasped at the fundus, elevated, retroflexed. The gallbladder neck was pulled to the patient's right. The critical view of safety was obtained by gently dissecting the peritoneal attachments to the gallbladder medially and laterally with hook cautery until the gallbladder was partially detached from the liver bed. A different dissection was performed behind and posterior to the gallbladder neck and cystic duct until an opening was obtained posterior to the cystic duct, and the cystic duct was identified. This was found to be shortened, and identification was made of the common bile duct. Cystic duct dissection was made with a right angle dissector. The cystic duct was double clipped proximally and divided with scissors. The cystic artery was identified posterior, clipped, and divided between Hemoclips. The gallbladder was then dissected off the liver bed using hook cautery with medium settings, and extracted from the peritoneal cavity with Endobag. Pneumoperitoneum was reestablished under direct visualization. The liver bed was examined and no active bleeding was noted. The peritoneal cavity was irrigated with normal saline which was completely aspirated. The epigastric fascial defect was closed with [id number] 0 Vicryl suture, placed with a fascial closure device under direct visualization. Following this, the instruments were removed. The pneumoperitoneum was released. All the ports were removed as well. The epigastric fascial defects were closed with the previously placed 0 Vicryl suture. All the skin incisions were then injected with 0.5% Marcaine and the skin of all incisions was closed with 4-0 Vicryl running subcuticular suture and Dermabond was applied. The patient tolerated the procedure well, extubated and transferred to the recovery room in satisfactory position. DICTATING PHYSICIAN: ESTEBAN TAM M.D. [id number] PHY#: [id number] ID: [id number] JOB#: [id number] ACCT: [id number] cc:ESTEBAN TAM M.D. > MTDD
== END 2018-07-24 10:33 | disposition home or self-care (01) ==
LOC: ER 22:48 → EH 07-23 03:03 → 2N 07-23 04:35
PROVIDERS: ATTEND Surgery
PROC: 0FT44ZZ Resection of Gallbladder, Percutaneous Endoscopic Approach (ICD-10-PCS; principal; 2018-07-23 10:30)
DX: K80.12 Calculus of gallbladder with acute and chronic cholecystitis without obstruction (principal); E66.01 Morbid (severe) obesity due to excess calories; Z68.43 Body mass index [BMI] 50.0-59.9, adult; K21.0 Gastro-esophageal reflux disease with esophagitis; Z87.19 Personal history of other diseases of the digestive system
CPT/HCPCS: 47562; 93005; 99285; 36415 ×2; 83690; 84703; 85025 ×2; 80053 ×2; 88304 ×2; 76705; 93010; G0378 ×3; J2250; J3490 ×6; J1100; J3010; J2270 ×2; J2550; J0330; J2405; J7030; J2704; J0744; S0028 ×2; J0131 ×2; 790; J1170

== ENCOUNTER → 2018-08-07 | Outpatient (CLI) | payer OTHER ==
[2018-08-07 16:35] LABS: ABSOLUTE BASOPHILS # (AUTO) 0.1 10^3/uL (0.0-0.2); ABSOLUTE EOSINOPHILS # (AUTO) 0.2 10^3/uL (0.0-0.6); ABSOLUTE LYMPHOCYTES (AUTO) 2.5 10^3/uL (0.5-4.7); ABSOLUTE MONOCYTES (AUTO) 0.6 10^3/uL (0.1-1.4); ABSOLUTE NEUT (AUTO) 5.7 10^3/uL (1.7-8.2); BASOPHILS % (AUTO) 0.6 % (0-2); EOSINOPHILS % (AUTO) 2.1 % (0-6); HEMATOCRIT 37.1 % (36.0-47.0); HEMOGLOBIN 12.6 g/dL (12.0-15.5); LYMPHOCYTES % (AUTO) 27.6 % (13-45); MEAN CORPUSCULAR HGB CONC 34.1 g/dL (32.0-36.0); MEAN CORPUSCULAR VOLUME 88 fl (80-97); MONOCYTES % (AUTO) 6.7 % (3-13); PLATELET COUNT 263 10^3/uL (150-450); RED BLOOD COUNT 4.21 10^6/uL (3.72-5.28); RED CELL DISTRIBUTION WIDTH 12.8 % (11.5-14.0); TOTAL CELLS COUNTED % (AUTO) 100 %
[2018-08-07 17:10] LABS: ALANINE AMINOTRANSFERASE 28 U/L (9-52); ALBUMIN 4.1 g/dL (3.5-5.0); ALKALINE PHOSPHATASE 83 U/L (38-126); ASPARTATE AMINO TRANSFERASE 16 U/L (14-36); BILIRUBIN,DIRECT 0.2 mg/dL (0.0-0.4); BILIRUBIN,TOTAL 0.2 mg/dL (0.2-1.3); TOTAL PROTEIN 6.3 g/dL (6.3-8.2)
== END ==
LOC: OD 14:53
PROVIDERS: ATTEND Physician Assistant Surgical
DX: R10.9 Unspecified abdominal pain (principal); Z90.49 Acquired absence of other specified parts of digestive tract
CPT/HCPCS: 36415; 80076; 85025